=== PATIENT | female | born 1955 | race Caucasian/White ===

== ENCOUNTER 2018-02-04 17:56 | Emergency (ER) | payer BC ==
[~2018-02-04] VITALS: Ht 165.1 cm; Wt 106.1 kg
[~2018-02-04 17:56] MED LIST: ATIVAN0.5 MG PO; BEPREVE10 ML BOTH EYES; CLARITIN-D 121 EACH PO; FIBER THERAPY0.52 GM PO; INCRUSE ELLI62.5 MCG IH; ULTRAM50 MG PO
[2018-02-04 19:01] VITALS: BP 173/110
== END 2018-02-04 19:01 | disposition home or self-care (01) ==
LOC: EME 17:56
DX: T17.298A Other foreign object in pharynx causing other injury, initial encounter (principal); X58.XXXA Exposure to other specified factors, initial encounter; F41.9 Anxiety disorder, unspecified; Z85.118 Personal history of other malignant neoplasm of bronchus and lung; Z87.891 Personal history of nicotine dependence; Z88.5 Allergy status to narcotic agent; Z88.1 Allergy status to other antibiotic agents
CPT/HCPCS: 99281; 99283